=== PATIENT | male | born 1975 | race Caucasian/White ===

== ENCOUNTER 2021-02-22 13:13 | Emergency (ER) | payer OTHER ==
[2021-02-22 13:19] VITALS: TEMP 98.2; BMI 33.6
[2021-02-22] MEDS ORDERED: METOCLOPRAMIDE HCL INJECTION 10 MG/2 ML VIAL ONE (14:54)
[2021-02-22] MEDS ORDERED: METOCLOPRAMIDE HCL INJECTION 10 MG/2 ML VIAL IVPB ONE (15:00)
[2021-02-22 15:28] LABS: BASO % 0.9 % (0-2.0); EOS % 3.4 % (0-4.5); HEMATOCRIT 42.8 % (35.4-49); HEMOGLOBIN 14.7 GM/dL (11.7-16.9); LYMPH % 29.9 % (8-40); MCHC 34.3 g/dl (32.0-35.9); MEAN CELL VOLUME 90.3 fl (80-96); MEAN PLT VOLUME 7.6 fl (7.5-11.1); MONO % 7.1 % (3.8-10.2); NEUT % 58.7 % (42.8-82.8); PLATELET COUNT 253 K/MM3 (134-434); RBC 4.74 M/mm3 (4.00-5.60); RDW 13.2 % (11.9-15.9); WHITE BLOOD COUNT 7.3 K/mm3 (4.0-10.0)
[2021-02-22 15:58] LABS: CALCIUM 8.7 mg/dL (8.5-10.1)
[2021-02-22 16:03] LABS: BILIRUBIN,TOTAL 0.7 mg/dL (0.2-1); TOT PROT 7.3 g/dl (6.4-8.2)
[2021-02-22] MEDS ORDERED: LIDOCAINE 5% TOPICAL PATCH TP ONE (17:40)
[2021-02-22] MEDS ORDERED: KETOROLAC TROMETHAMINE 15 MG/ML VIAL IVPUSH ONE (17:40)
[2021-02-22] MEDS ORDERED: LIDOCAINE 5% TOPICAL PATCH ONE (18:15)
[2021-02-22] MEDS ORDERED: KETOROLAC TROMETHAMINE 15 MG/ML VIAL ONE (18:15)
[2021-02-22] MEDS ORDERED: diazePAM 5 MG TABLET PO ONE (18:33)
[2021-02-22] MEDS ORDERED: diazePAM 5 MG TABLET ONE (18:34)
[2021-02-22] MEDS ORDERED: SODIUM CHLORIDE 0.9% 500 ML INFUS.BAG IV ONE (18:38)
[2021-02-22 19:23] VITALS: BP 121/74; PULSE 72
[2021-02-22] MEDS ORDERED: LIDOCAINE PATCH REMOVAL MC SCH (22:00)
== END 2021-02-22 19:24 | disposition home or self-care (01) ==
LOC: JER 13:13
PROC: 3E0333Z Introduction of Anti-inflammatory into Peripheral Vein, Percutaneous Approach (ICD-10-PCS; principal; 2021-02-22)
PROC: 3E033GC Introduction of Other Therapeutic Substance into Peripheral Vein, Percutaneous Approach (ICD-10-PCS; 2021-02-22)
DX: R51.9 Headache, unspecified (principal); M79.2 Neuralgia and neuritis, unspecified
CPT/HCPCS: 36415; 70450-TC; 80053; 85025; 99284-25